=== PATIENT | male | born 1975 | race Caucasian/White ===

== ENCOUNTER 2016-10-22 21:51 | Emergency (ER) | payer OTHER ==
[2016-10-22 21:59] VITALS: BP 123/69; PULSE 75; RESP 16; TEMP 97.2
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
== END 2016-10-22 22:36 | disposition home or self-care (01) ==
LOC: EC 21:51
DX: L02.413 Cutaneous abscess of right upper limb (principal); F17.200 Nicotine dependence, unspecified, uncomplicated
CPT/HCPCS: 10060; 99283